=== PATIENT | male | born 1965 | race Hispanic/Latino ===

== ENCOUNTER 2022-01-03 09:21 | Emergency (ER) | payer MEDICARE ==
[2022-01-03 09:30] VITALS: BP 106/60
[2022-01-03] MEDS ORDERED: SODIUM CHLORIDE 0.9% IRR 500 ML BOTTLE IR SCH (09:45)
[2022-01-03] MEDS ORDERED: AMOXICILLIN 500 MG CAP PO ONE (09:45)
[2022-01-03] MEDS ORDERED: TETANUS,DIPH,PERTUSS(ACELL) VACCINE 0.5 ML SYRINGE IM ONE (09:45)
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
== END 2022-01-03 11:17 | disposition home or self-care (01) ==
LOC: ED 09:21
DX: T14.8XXA Other injury of unspecified body region, initial encounter (principal); F17.200 Nicotine dependence, unspecified, uncomplicated; F10.20 Alcohol dependence, uncomplicated; W50.3XXA Accidental bite by another person, initial encounter; Y93.89 Activity, other specified; Y92.89 Other specified places as the place of occurrence of the external cause; Y99.8 Other external cause status; Y08.89XA Assault by other specified means, initial encounter
CPT/HCPCS: 90471; 90715; 99283

== ENCOUNTER 2022-01-03 17:16 | Emergency (ER) | payer MEDICARE | END 2022-01-03 22:30 | disposition left against medical advice (07) | LOC: ED 17:16 | DX: M79.673 Pain in unspecified foot (principal); Z53.21 Procedure and treatment not carried out due to patient leaving prior to being seen by health care provider ==

== ENCOUNTER 2022-01-03 23:45 | Emergency (ER) | payer MEDICARE ==
[2022-01-04 02:04] LABS: Basophils # (Auto) 0.1 K/mm3 (0.0-0.1); Basophils % (Auto) 0.4 % (0.0-1.8); Eosinophils # (Auto) 0.1 K/mm3 (0.0-0.4); Eosinophils % (Auto) 0.6 % (0.0-4.3); Hematocrit 42.4 % (35.5-45.6); Lymphocytes # (Auto) 1.9 K/mm3 (1.2-5.4); Lymphocytes % (Auto) 13.5 % (13.4-35.0); Mean Corpuscular HGB Conc 33 % (32-34); Mean Corpuscular Volume 95 fl (84-94); Monocytes # (Auto) 0.9 K/mm3 (0.0-0.8); Monocytes % (Auto) 6.8 % (0.0-7.3); Platelet Count 238 K/mm3 (140-440); Red Blood Count 4.47 M/mm3 (3.65-5.03); Red Cell Distribution Width 14.3 % (13.2-15.2)
[2022-01-04 02:14] LABS: Bilirubin,Urine NEG (Negative); Blood,Urine NEG (Negative); Color,Urine Yellow (Yellow); Hyaline Casts,Urine 1 /LPF; Mucus,Urine 1+ /HPF; Protein,Urine <15 mg/dL mg/dL (Negative); Urobilinogen,Urine < 2.0 mg/dL (<2.0)
[2022-01-04 02:16] LABS: Amphetamine Screen,Urine Negative; Benzodiazepines Screen,Urine Negative; Cannabinoid Screen,Urine Negative; Cocaine Screen,Urine Negative; Methadone Screen,Urine Negative; Opiate Screen,Urine Negative
[2022-01-04 02:19] LABS: BUN/Creatinine Ratio 24; Blood Urea Nitrogen 24 mg/dL (9-20); Calcium 9.4 mg/dL (8.4-10.2); Hemolysis Index 9
--- NOTE | 2022-01-04 04:10 | Emergency Department Report ---
ED Medical Clearance HPI - General Chief complaint: Medical Clearance Stated complaint: MEDICAL CLEARANCE Source: patient Mode of arrival: Ambulatory - History of Present Illness Initial comments: Patient is a 56-year-old white male with a history of chronic alcohol abuse who presents to the ED for medical clearance for admission to [facility] for alcohol rehab. Patient states that he had been drinking all day and decided to go to [place] [facility] but was advised to come to the ED for medical clearance for being admitted to the facility. Patient denies suicidal or homicidal ideations, hallucination, nausea, vomiting, chest pain, shortness of breath, abdominal pain, headache, dizziness, syncope or change in vision, fever and chills. Complaint: medical clearance request, other (Medical clearance for alcohol rehab at [facility]) -: Gradual, year(s) (>20) Reason for Medical Clearance: intoxication (Chronic alcohol abuse) Place: street Alledged Intoxication: Yes Compliant with Home Medications: No Traumatic Symptoms: denies traumatic injury Associated Symptoms: denies: chest pain, shortness of breath, palpitations, diaphoresis, denies other symptoms, confusion, cough, fever/chills, headaches, anorexia, nausea/vomiting, rash, seizure, syncope, weakness, other Treatments Prior to Arrival: none Home medications: Previous Rx's Medication Instructions Recorded Last Taken Type Amoxicillin [Trimox CAP] 500 mg PO BID #20 capsule 01/03/22 Unknown Rx Allergies/Adverse reactions: Allergies Allergy/AdvReac Type Severity Reaction Status Date / Time No Known Allergies Allergy Verified 01/03/22 09:25 ED Review of Systems ROS: Stated complaint: MEDICAL CLEARANCE Other details as noted in HPI Constitutional: denies: chills, fever Eyes: denies: eye pain, eye discharge, vision change ENT: denies: ear pain, throat pain Respiratory: denies: cough, shortness of breath, wheezing Cardiovascular: denies: chest pain, palpitations Endocrine: no symptoms reported Gastrointestinal: denies: abdominal pain, nausea, diarrhea Genitourinary: denies: urgency, dysuria Musculoskeletal: denies: back pain, joint swelling, arthralgia Skin: denies: rash, lesions Neurological: denies: headache, weakness, paresthesias Psychiatric: anxiety. denies: depression, auditory hallucinations, visual hallucinations, homicidal thoughts, suicidal thoughts Hematological/Lymphatic: denies: easy bleeding, easy bruising ED Past Medical Hx - Social History Smoking Status: Current Every Day Smoker Substance Use Type: Alcohol - Medications Home Medications: Home Medications Medication Instructions Recorded Confirmed Last Taken Type Amoxicillin [Trimox CAP] 500 mg PO BID #20 capsule 01/03/22 Unknown Rx ED Physical Exam - General Limitations: No Limitations General appearance: alert, in no apparent distress - Head Head exam: Present: atraumatic, normocephalic, normal inspection - Eye Eye exam: Present: normal appearance, PERRL, EOMI Pupils: Present: normal accommodation - ENT ENT exam: Present: normal exam, normal orophraynx, mucous membranes moist, TM's normal bilaterally, normal external ear exam - Neck Neck exam: Present: normal inspection, full ROM. Absent: tenderness - Respiratory Respiratory exam: Present: normal lung sounds bilaterally. Absent: respiratory distress, wheezes, rales, rhonchi, chest wall tenderness, accessory muscle use, decreased breath sounds, prolonged expiratory - Cardiovascular Cardiovascular Exam: Present: regular rate, normal rhythm, normal heart sounds. Absent: systolic murmur, diastolic murmur, rubs, gallop - GI/Abdominal GI/Abdominal exam: Present: soft, normal bowel sounds. Absent: tenderness, rebound, rigid, hyperactive bowel sounds, hypoactive bowel sounds, organomegaly, bruit - Extremities Exam Extremities exam: Present: normal inspection, full ROM, normal capillary refill - Back Exam Back exam: Present: normal inspection, full ROM. Absent: tenderness, CVA tender ness (R), CVA tenderness (L), muscle spasm, vertebral tenderness - Neurological Exam Neurological exam: Present: alert, oriented X3, CN II-XII intact, normal gait, reflexes normal - Psychiatric Psychiatric exam: Present: normal affect, normal mood, anxious - Skin Skin exam: Present: warm, dry, intact, normal color. Absent: rash ED Course Vital Signs 01/04/22 00:11 Temperature 98.5 F Pulse Rate 97 H Respiratory 18 Rate Blood Pressure 158/77 O2 Sat by Pulse 98 Oximetry ED Medical Decision Making - Lab Data Result diagrams: 01/04/22 01:10 01/04/22 01:10 - Medical Decision Making This is a 56-year-old white male with a history of chronic alcohol abuse who presents to the ED for medical clearance for admission to [facility] for alcohol rehab. Patient states that he had been drinking all day and decided to go to [place] but was advised to come to the ED for medical clearance for being admitted to the facility. In the ED, patient is alert and oriented x3 and is not in any distress. Lab test results were reviewed and are all nonactionable, and patient is not suicidal or homicidal and is not intoxicated on alcohol as alcohol level is unremarkable. Patient was medically cleared in the ED and advised to follow[facility] at [facility] previously scheduled. Patient was advised return to the ED immediately if symptoms get worse. - Differential Diagnosis Chronic alcohol abuse; alcohol intoxication; chronic anxiety ED Disposition Clinical Impression: Chronic alcohol abuse, Medical clearance for psychiatric admission Disposition: 01 HOME / SELF CARE / HOMELESS Is pt being admited?: No Does the pt Need Aspirin: No Condition: Stable Instructions: Substance Use Disorder and Mental Illness, Alcohol Intoxication, [id number], Alcohol Abuse and Dependence Information, Adult Additional Instructions: You are medically cleared for admission to the [facility]. Therefore presented self to the facility for admission for the alcohol abuse and rehab program. Referrals: [facility] [Other] - 3-5 Days Time of Disposition: 04:09 Print Language: NIUEAN
[2022-01-04 04:41] VITALS: BP 148/86
== END 2022-01-04 04:41 | disposition home or self-care (01) ==
LOC: ED 23:45
DX: Z04.6 Encounter for general psychiatric examination, requested by authority (principal); F10.10 Alcohol abuse, uncomplicated; G89.29 Other chronic pain; F17.200 Nicotine dependence, unspecified, uncomplicated; Z79.899 Other long term (current) drug therapy; Y90.9 Presence of alcohol in blood, level not specified
CPT/HCPCS: 36415; 80048; 80307; 80320; 81001; 85025; 99283; G0480